=== PATIENT | male | born 1995 | race African-American/Black ===

== ENCOUNTER 2020-02-14 06:39 | Inpatient (IN) | payer MEDICAID ==
[~2020-02-14] VITALS: Ht 172.7 cm; Wt 78.9 kg
[2020-02-14] MEDS ORDERED: MORPHINE SULFATE 4 MG/ML CPJ (NOT FOR IM USE) IV STA (06:55)
[2020-02-14] MEDS ORDERED: ACETAMINOPHEN 325MG TABLET PO ONE (07:00)
[2020-02-14 07:14] LABS: HEMATOCRIT. 46.2 % (42.0-52.0); HEMOGLOBIN. 15.8 g/dL (14.0-18.0); MEAN CORPUSCULAR HEMOGLOBIN 30.4 pg (28.0-32.0); MEAN PLATELET VOLUME 10.6 fl (7.4-10.4); PLATELET 133 x1000/uL (130-400); RED BLOOD CELL COUNT 5.19 mill/uL (4.7-6.1); RED CELL DISTRIBUTION WIDTH 12.8 % (11.6-14.6)
[2020-02-14] MEDS ORDERED: ONDANSETRON HCL 4MG/2ML INJ IV ONE (07:15)
[2020-02-14 07:24] LABS: CHLORIDE 100 mEq/L (98-107)
[2020-02-14 07:57] LABS: INR 1.2; PROTHROMBIN TIME 12.8 sec (9.6-11.0)
[2020-02-14 08:01] LABS: PLATELET ESTIMATE NORMAL
[2020-02-14] MEDS ORDERED: KETOROLAC 30MG/ML VIAL IV ONE (08:15)
[2020-02-14 08:39] LABS: CLARITY URINE CLEAR (CLEAR); COLOR URINE ORANGE (YELLOW); KETONES URINE 3+ (NEGATIVE); LEUKOCYTE ESTERASE URINE NEGATIVE (NEGATIVE); NITRITE URINE NEGATIVE (NEGATIVE); OCCULT BLOOD URINE NEGATIVE (NEGATIVE); PH URINE 5.5 (4.5-8.0); PROTEIN URINE TRACE (NEGATIVE); SPECIFIC GRAVITY URINE 1.022 (1.005-1.030)
[2020-02-14] MEDS ORDERED: CEFTRIAXONE SODIUM 250 MG/VIAL IM ONE (09:30)
[2020-02-14] MEDS ORDERED: CLINDAMYCIN 600 MG in DEXTROSE 5% WATER 50 ML IV ONE (09:30)
[2020-02-14] MEDS ORDERED: DOXYCYCLINE HYCLATE 100MG CAPSULE PO ONE (09:30)
[2020-02-14] MEDS ORDERED: CLINDAMYCIN 600MG PREMIX 50 ML IV SCH ×2 (09:45→18:00)
[2020-02-14] MEDS ORDERED: KETOROLAC 30MG/ML VIAL IV PRN (11:30)
[2020-02-14] MEDS ORDERED: ONDANSETRON HCL 4MG/2ML INJ IV PRN (11:30)
[2020-02-14] MEDS: ACETAMINOPHEN 325MG TABLET PO PRN ×2 (17:13→23:31)
[2020-02-14 18:00] VITALS: BP 108/60
[2020-02-14 20:00] VITALS: BP 108/56
[2020-02-14] MEDS: CLINDAMYCIN 600MG PREMIX 50 ML IV SCH (20:46)
[2020-02-15] VITALS: BP 105/52
[2020-02-15 03:16] LABS: *AMPHETAMINES SCREEN URINE NEGATIVE (NEGATIVE); *BENZODIAZEPINES SCREEN URINE NEGATIVE (NEGATIVE); *COCAINE SCREEN URINE NEGATIVE (NEGATIVE); METHADONE URINE SCREEN NEGATIVE (NEGATIVE); OPIATES URINE SCREEN PRESUMTIVE POSITIVE (NEGATIVE); PHENCYCLIDINE URINE SCREEN NEGATIVE (NEGATIVE)
[2020-02-15 03:17] LABS: CANNABINOID URINE SCREEN NEGATIVE (NEGATIVE)
[2020-02-15 03:20] LABS: *BARBITURATES SCREEN URINE NEGATIVE (NEGATIVE)
[2020-02-15 04:00] VITALS: BP 101/52
[2020-02-15] MEDS: CLINDAMYCIN 600MG PREMIX 50 ML IV SCH ×2 (04:08→11:07)
[2020-02-15] MEDS: ACETAMINOPHEN 325MG TABLET PO PRN ×2 (06:14→23:46)
[2020-02-15 06:59] LABS: HEMATOCRIT. 41.2 % (42.0-52.0); HEMOGLOBIN. 14.2 g/dL (14.0-18.0); MEAN CORPUSCULAR HEMOGLOBIN 30.7 pg (28.0-32.0); MEAN PLATELET VOLUME 11.3 fl (7.4-10.4); PLATELET 95 x1000/uL (130-400); RED BLOOD CELL COUNT 4.62 mill/uL (4.7-6.1); RED CELL DISTRIBUTION WIDTH 12.9 % (11.6-14.6)
[2020-02-15 07:17] LABS: CHLORIDE 96 mEq/L (98-107)
[2020-02-15 08:00] VITALS: BP 96/58
[2020-02-15 12:00] VITALS: BP 99/57
[2020-02-15 13:54] LABS: PLATELET ESTIMATE DECREASED
[2020-02-15] MEDS: CEFTRIAXONE 1,000 MG in DEXTROSE 5% WATER 50 ML IV SCH (15:07)
[2020-02-15 16:00] VITALS: BP 92/58
[2020-02-15] MEDS ORDERED: VANCOMYCIN 1250MG in DEXTROSE 5% WATER 250ML IV SCH (16:00)
[2020-02-15 18:09] LABS: MONOTEST NEGATIVE (NEGATIVE)
[2020-02-15 20:00] VITALS: BP 100/51
[2020-02-15] MEDS ORDERED: LORAZEPAM 2MG/ML CPJ IV PRN (20:30)
[2020-02-16] VITALS: BP 97/32
[2020-02-16] MEDS: VANCOMYCIN 750 MG PREMIX 150 ML IV SCH ×2 (00:10→09:29)
[2020-02-16 04:00] VITALS: BP 99/53
[2020-02-16 07:15] LABS: HEMATOCRIT. 41.3 % (42.0-52.0); HEMOGLOBIN. 14.2 g/dL (14.0-18.0); MEAN CORPUSCULAR HEMOGLOBIN 30.4 pg (28.0-32.0); MEAN CORPUSCULAR VOLUME 88.2 fL (80.0-94.0); MEAN PLATELET VOLUME 11.1 fl (7.4-10.4); PLATELET 101 x1000/uL (130-400); RED BLOOD CELL COUNT 4.68 mill/uL (4.7-6.1); RED CELL DISTRIBUTION WIDTH 13.2 % (11.6-14.6)
[2020-02-16 07:33] LABS: CHLORIDE 100 mEq/L (98-107)
[2020-02-16 08:00] VITALS: BP 94/63
[2020-02-16] MEDS: ACETAMINOPHEN 325MG TABLET PO PRN (10:41)
[2020-02-16 12:00] VITALS: BP 86/52
[2020-02-16 14:25] LABS: PLATELET ESTIMATE DECREASED
[2020-02-16] MEDS: CEFTRIAXONE 1,000 MG in DEXTROSE 5% WATER 50 ML IV SCH (15:39)
[2020-02-16 16:00] VITALS: BP 106/53
[2020-02-16] MEDS: VANCOMYCIN 1 G PREMIX 200 ML IV SCH (17:47)
[2020-02-16 20:28] VITALS: BP 108/66
[2020-02-17] VITALS: BP 103/64
[2020-02-17] MEDS: VANCOMYCIN 1 G PREMIX 200 ML IV SCH ×2 (01:46→08:52)
[2020-02-17 04:00] VITALS: BP 121/70
[2020-02-17 06:48] LABS: HEMATOCRIT. 41.2 % (42.0-52.0); MEAN CORPUSCULAR HEMOGLOBIN 30.3 pg (28.0-32.0); MEAN CORPUSCULAR VOLUME 89.4 fL (80.0-94.0); MEAN PLATELET VOLUME 10.5 fl (7.4-10.4); PLATELET 113 x1000/uL (130-400); RED BLOOD CELL COUNT 4.61 mill/uL (4.7-6.1); RED CELL DISTRIBUTION WIDTH 13.3 % (11.6-14.6)
[2020-02-17 06:53] LABS: CHLORIDE 100 mEq/L (98-107)
[2020-02-17 07:10] LABS: HIV SCREEN 4G Non Reactive (Non Reactive)
[2020-02-17 08:00] VITALS: BP 113/64
[2020-02-17] MEDS ORDERED: SULF1TAB48 MT (09:03)
[2020-02-17] MEDS ORDERED: AMOX-424 MT (09:03)
[2020-02-17 10:33] LABS: PLATELET ESTIMATE NORMAL
[2020-02-17 11:16] VITALS: BP 113/64
[2020-02-17] MEDS ORDERED: VANCOMYCIN 1250MG in DEXTROSE 5% WATER 250ML IV SCH (18:00)
== END 2020-02-17 12:00 | disposition home or self-care (01) | DRG 720 ==
LOC: ER 06:39 → 6EST 10:28 → EDBEDREQ 10:34 → EDBEDREQTM 10:34 → EDBEDREQSVC 14:28 → ENRESERV 16:55
PROVIDERS: ADMIT Internal Medicine; ATTEND Internal Medicine
DX: A41.9 Sepsis, unspecified organism (principal); E87.1 Hypo-osmolality and hyponatremia; I86.1 Scrotal varices; N49.2 Inflammatory disorders of scrotum
CPT/HCPCS: 36415; 76870; 80048; 80053; 80202; 80305; 81003; 84145; 85025; 86308; 86592; 87389; 93005; 93976; 99285; J0696; J1885; J2060; J2270; J2405; J3370; J3490; J7060